=== PATIENT | male | born 1955 | race Caucasian/White ===

== ENCOUNTER 2020-09-10 13:52 | Outpatient (CLI) | payer MEDICARE, OTHER ==
[2020-09-10] MEDS ORDERED: Iopamidol 370 76% 100 ML VIAL ONE (14:01)
== END 2020-09-10 13:53 | disposition home or self-care (01) ==
LOC: BICCT 13:52
PROVIDERS: ATTEND Internal Medicine Cardiovascular Disease
DX: I10 Essential (primary) hypertension (principal); R91.8 Other nonspecific abnormal finding of lung field; I70.8 Atherosclerosis of other arteries; I65.23 Occlusion and stenosis of bilateral carotid arteries
CPT/HCPCS: 70498; 82565; Q9967

== ENCOUNTER 2022-01-05 12:39 | Day surgery (SDC) | payer MEDICARE, OTHER ==
[2022-01-05 16:55] VITALS: BP 141/68; TEMP 98.1
[2022-01-06 12:51] LABS: CCP IgG Antibody 2.8 EliAU/mL (<7 Negative)
== END 2022-01-05 16:56 | disposition home or self-care (01) ==
LOC: ONC/OP 12:39
PROVIDERS: ATTEND Internal Medicine
PROC: 30233N1 Transfusion of Nonautologous Red Blood Cells into Peripheral Vein, Percutaneous Approach (ICD-10-PCS; principal; 2022-01-05)
DX: D61.818 Other pancytopenia (principal); E53.8 Deficiency of other specified B group vitamins; Z79.899 Other long term (current) drug therapy
CPT/HCPCS: 36430; 83520; 86200; 86850; 86900; 86901; 87798; P9016